=== PATIENT | female | born 1990 | race Caucasian/White ===

== ENCOUNTER 2020-12-11 10:53 | Day surgery (SDC) | payer OTHER ==
[2020-12-11 11:13] VITALS: BMI 23.9
[2020-12-11 12:40] VITALS: TEMP 98.5
[2020-12-11 13:47] VITALS: BP 121/72; PULSE 68
== END 2020-12-11 13:15 | disposition home or self-care (01) ==
LOC: FASU-ENDO 10:53
PROVIDERS: ATTEND Internal Medicine Gastroenterology
PROC: 0DB78ZX Excision of Stomach, Pylorus, Via Natural or Artificial Opening Endoscopic, Diagnostic (ICD-10-PCS; 2020-12-11)
PROC: 0DB48ZX Excision of Esophagogastric Junction, Via Natural or Artificial Opening Endoscopic, Diagnostic (ICD-10-PCS; 2020-12-11)
PROC: 0DB98ZX Excision of Duodenum, Via Natural or Artificial Opening Endoscopic, Diagnostic (ICD-10-PCS; principal; 2020-12-11 12:16)
DX: K21.9 Gastro-esophageal reflux disease without esophagitis (principal); K29.70 Gastritis, unspecified, without bleeding; K31.89 Other diseases of stomach and duodenum
CPT/HCPCS: 84703